=== PATIENT | female | born 1945 | race Asian ===

== ENCOUNTER → 2017-10-12 | Outpatient (CLI) | payer OTHER ==
[~2017-10-12] MED LIST: ASCO-360 PO; ASPI-555 PO; CITA20TA17 PO; DILT180C63 PO; FAMO-136 PO; GLUC-172 PO; HYDR25TA PO; MV-M1TAB39 PO; ROSU10TA27 PO; ZOLP10TA2 PO
== END | disposition home or self-care (01) ==
LOC: RAH 16:04
PROVIDERS: ATTEND Internal Medicine
DX: R05 Cough (principal)
CPT/HCPCS: 71046

== ENCOUNTER → 2018-05-09 | Outpatient (CLI) | payer OTHER | END | disposition home or self-care (01) | LOC: RAH 11:59 | PROVIDERS: ATTEND Internal Medicine | DX: S00.93XS Contusion of unspecified part of head, sequela (principal); G31.9 Degenerative disease of nervous system, unspecified; M79.89 Other specified soft tissue disorders; Z72.89 Other problems related to lifestyle; X58.XXXS Exposure to other specified factors, sequela | CPT/HCPCS: 70450 ==

== ENCOUNTER → 2018-09-23 | Outpatient (CLI) | payer OTHER ==
[~2018-09-23] MED LIST changes: -ROSU10TA27 PO; +ROSU10TA28 PO
== END | disposition home or self-care (01) ==
LOC: RAH 14:26
PROVIDERS: ATTEND Internal Medicine
DX: Z12.31 Encounter for screening mammogram for malignant neoplasm of breast (principal)
CPT/HCPCS: 77067

== ENCOUNTER → 2018-10-10 | Outpatient (CLI) | payer OTHER ==
[~2018-10-10] MED LIST changes: +ROSU10TA27 PO; -ROSU10TA28 PO
== END | disposition home or self-care (01) ==
LOC: RAH 10:09
PROVIDERS: ATTEND Internal Medicine
DX: R01.1 Cardiac murmur, unspecified (principal)
CPT/HCPCS: 93306

== ENCOUNTER → 2019-11-08 | Outpatient (CLI) | payer OTHER ==
[~2019-11-08] MED LIST changes: -ROSU10TA27 PO; +ROSU10TA28 PO
== END | disposition home or self-care (01) ==
LOC: RAH 09:21
PROVIDERS: ATTEND Internal Medicine
DX: M25.512 Pain in left shoulder (principal)
CPT/HCPCS: 73030; 73060

== ENCOUNTER → 2019-11-16 | Outpatient (CLI) | payer OTHER | END | disposition home or self-care (01) | LOC: RAH 15:15 | PROVIDERS: ATTEND Internal Medicine Cardiovascular Disease | DX: Z13.6 Encounter for screening for cardiovascular disorders (principal) ==

== ENCOUNTER → 2019-12-19 | Outpatient (CLI) | payer OTHER ==
[~2019-12-19] MED LIST changes: -ASPI-555 PO; +ASPI-556 PO; +LORA10TA7 PO; +MULT-1192 PO; +PANT40TA54 PO; +albuterol inhaler IH
== END | disposition home or self-care (01) ==
LOC: RAH 13:58
PROVIDERS: ATTEND Internal Medicine
DX: M47.22 Other spondylosis with radiculopathy, cervical region (principal); M25.512 Pain in left shoulder
CPT/HCPCS: 72040; 73221

== ENCOUNTER → 2020-01-23 | Outpatient (CLI) | payer OTHER ==
[~2020-01-23] MED LIST changes: -LORA10TA7 PO; -MULT-1192 PO; -PANT40TA54 PO; -albuterol inhaler IH
== END | disposition home or self-care (01) ==
LOC: RAH 09:20
PROVIDERS: ATTEND Internal Medicine
DX: Z01.818 Encounter for other preprocedural examination (principal); M75.112 Incomplete rotator cuff tear or rupture of left shoulder, not specified as traumatic; M47.814 Spondylosis without myelopathy or radiculopathy, thoracic region
CPT/HCPCS: 71046

== ENCOUNTER 2020-02-15 05:45 | Day surgery (SDC) | payer OTHER ==
[2020-02-07 11:39] LABS: BASOPHILS % (AUTO) 0.8 % (0.0-5.0); EOSINOPHILS % (AUTO) 3.6 % (0.0-8.0); HEMATOCRIT 40.1 % (36-48); MEAN CORPUSCULAR HEMOGLOBIN 31.1 pg (27.0-33.0); MEAN CORPUSCULAR HGB CONC 32.9 g/dL (32.0-36.0); MEAN CORPUSCULAR VOLUME 94.6 fL (79-99); MONOCYTES % (AUTO) 8.5 % (3.0-13.0); NEUTROPHILS % (AUTO) 46.8 % (40.0-77.0); PLATELET COUNT (AUTO) 210 K/uL (130-400); RED BLOOD CELL COUNT(AUTO) 4.24 MIL/uL (4.00-5.50); RED CELL DISTRIBUTION WIDTH 12.4 % (11.0-15.5); WHITE BLOOD COUNT (AUTO) 5.9 K/uL (4.8-10.8)
[2020-02-07 11:58] LABS: CREATININE 0.8 mg/dL (0.5-1.5)
[2020-02-15] VITALS (17 sets, daily range): BP systolic 100–146; BP diastolic 44–76
[~2020-02-15] VITALS: Ht 154.9 cm; Wt 63.0 kg
[2020-02-15] MEDS ORDERED: LACTATED RINGERS 1000ML 1,000 ML IV ONE (06:04)
[2020-02-15] MEDS: CEFAZOLIN SODIUM 1 GM VIAL ONE ×2 (06:04→08:00)
[2020-02-15] MEDS ORDERED: LIDOCAINE PF 2% 5ML ABBOJECT ONE (07:10)
[2020-02-15] MEDS ORDERED: ONDANSETRON HCL 4 MG/2 ML VIAL ONE (07:11)
[2020-02-15] MEDS ORDERED: ROCURONIUM 10MG/1ML SYR 10 MG/ML ML ONE (07:12)
[2020-02-15] MEDS ORDERED: PROPOFOL 10 MG/ML 20ML VIAL IV ONE (07:12)
[2020-02-15] MEDS ORDERED: FENTANYL CITRATE PF 50 MCG/1 ML 2ML VIAL ONE (07:13)
[2020-02-15] MEDS ORDERED: MIDAZOLAM HCL 1 MG/ML 2ML VIAL ONE (07:14)
[2020-02-15] MEDS ORDERED: ROPIVACAINE 0.5% 5MG/ML 30ML IJ ONE (07:16)
[2020-02-15] MEDS ORDERED: DEXAMETHASONE SOD PHOSPHATE 10MG/ML 1ML VIAL ONE (07:17)
[2020-02-15] MEDS ORDERED: LORA10TA7 PO (08:02)
[2020-02-15] MEDS ORDERED: MULT-1192 PO (08:02)
[2020-02-15] MEDS ORDERED: albuterol inhaler IH (08:05)
[2020-02-15] MEDS ORDERED: PANT40TA54 PO (08:05)
[2020-02-15] MEDS ORDERED: GLYCOPYRROLATE 1 MG/5 ML SYRINGE ONE (08:43)
[2020-02-15] MEDS ORDERED: NEOSTIGMINE 5MG/5ML SYR IV ONE (08:43)
[2020-02-15] MEDS ORDERED: EPHEDRINE SULFATE 50 MG/ML AMPULE ONE (08:53)
[2020-02-15] MEDS ORDERED: KETOROLAC TROMETHAMINE 30MG/ML ONE (09:28)
--- NOTE | 2020-02-15 10:45 | NUR ---
PATIENT ARRIVED TO DAY PATIENT VIA STRETCHER BY MAHAMED DE PAZ. PATIENT AAOX3, RESPIRATIONS UNLABORED, VITAL SIGNS STABLE. DENIES ANY PAIN AT THIS TIME, PATIENT RECEIVED NERVE BLOCK IN OR AND STATES THAT HER LEFT ARE "FEELS NUMB". SLING TO LEFT ARM IN PLACE AND DRESSING LEFT SHOULDER IS DRY/INTACT, NO DRAINAGE OR BLEEDING NOTED.
--- NOTE | 2020-02-15 11:15 | NUR ---
DISCHARGE INSTRUCTIONS PROVIDED TO PATIENT'S SPOUSE (LESLIE THAKKAR) VIA TELEPHONE. FOLLOW UP APPOINTMENT PROVIDE AND INCISION CARE INSTRUCTIONS PROVIDED WELL. PATIENT'S SPOUSE VERBALIZED UNDERSTANDING, ALL QUESTIONS/CONCERNS ADDRESSED.
== END 2020-02-15 11:30 | disposition home or self-care (01) ==
LOC: DAH 05:45
PROVIDERS: ATTEND Orthopaedic Surgery
DX: S46.212A Strain of muscle, fascia and tendon of other parts of biceps, left arm, initial encounter (principal); M75.42 Impingement syndrome of left shoulder; M25.812 Other specified joint disorders, left shoulder; M19.012 Primary osteoarthritis, left shoulder; M47.22 Other spondylosis with radiculopathy, cervical region; Z20.828 Contact with and (suspected) exposure to other viral communicable diseases; W19.XXXA Unspecified fall, initial encounter; Y93.89 Activity, other specified; Y92.89 Other specified places as the place of occurrence of the external cause; Y99.8 Other external cause status
CPT/HCPCS: 29826; 29827; 29828; 36415; 64415; 76942; 80048; 85025; 93005; A4215; A4221; A4222; A4223; A4452; A4565; A4649 ×5; A4663; A4930; A6260; C1713 ×3; J0690; J1100; J1885; J2001; J2250; J2405; J2704; J2710; J2795; J3010; J3490 ×2; J7120 ×2; U0003

== ENCOUNTER → 2020-03-22 | Outpatient (CLI) | payer OTHER ==
[~2020-03-22] MED LIST changes: -ASCO-360 PO; -FAMO-136 PO; -GLUC-172 PO; +LORA10TA7 PO; +MULT-1192 PO; -MV-M1TAB39 PO; +PANT40TA54 PO; +albuterol inhaler IH
== END | disposition home or self-care (01) ==
LOC: RAH 10:41
PROVIDERS: ATTEND Internal Medicine
DX: Z12.31 Encounter for screening mammogram for malignant neoplasm of breast (principal)
CPT/HCPCS: 77067

== ENCOUNTER → 2022-11-13 | Outpatient (CLI) | payer MEDICARE | END | disposition home or self-care (01) | LOC: RAH 11:51 | PROVIDERS: ATTEND Internal Medicine | DX: M17.12 Unilateral primary osteoarthritis, left knee (principal); M25.562 Pain in left knee | CPT/HCPCS: 73560 ==

== ENCOUNTER → 2023-05-11 | Outpatient (CLI) | payer MEDICARE | END | disposition home or self-care (01) | LOC: RAH 15:33 | PROVIDERS: ATTEND Internal Medicine | DX: Z12.31 Encounter for screening mammogram for malignant neoplasm of breast (principal) | CPT/HCPCS: 77067 ==

== ENCOUNTER → 2025-01-03 | Outpatient (CLI) | payer MEDICARE ==
[~2025-01-03] MED LIST changes: -ROSU10TA28 PO; +ROSU10TA72 PO; +ZOLP-685 PO; -ZOLP10TA2 PO
== END | disposition home or self-care (01) ==
LOC: RAH 08:47
PROVIDERS: ATTEND Internal Medicine
DX: Z12.31 Encounter for screening mammogram for malignant neoplasm of breast (principal)
CPT/HCPCS: 77067

== ENCOUNTER → 2025-04-18 | Outpatient (CLI) | payer MEDICARE ==
[~2025-04-18] MED LIST changes: -ROSU10TA72 PO; +ROSU10TA98 PO
--- NOTE | 2025-04-18 14:31 | HMCIMG ---
EXAM: US Abdomen, Right Upper Quadrant CLINICAL HISTORY: Abnormal levels of other serum enzymes. TECHNIQUE: Right upper quadrant sonography performed with image documentation. COMPARISON: None provided. FINDINGS: LIVER: Measures approximately 13.3 cm in length. Normal echotexture and echogenicity. No focal hepatic mass or intrahepatic biliary dilatation identified. GALLBLADDER: Surgically absent. No abnormal fluid collection in the gallbladder fossa. COMMON BILE DUCT: Measures approximately 6 mm in diameter, within normal post-cholecystectomy limits. No intrahepatic biliary dilatation. PANCREAS: Visualized portions of the pancreas appear within normal limits. No focal lesion or peripancreatic fluid collection identified. RIGHT KIDNEY: Measures approximately 10.0 ??? 4.3 ??? 4.7 cm. Normal cortical echogenicity and parenchymal thickness. No hydronephrosis, calculus, or focal lesion. IMPRESSION: * Post-cholecystectomy status with normal common bile duct caliber. * Normal sonographic appearance of the liver, pancreas, and right kidney. /Harper
== END | disposition home or self-care (01) ==
LOC: RAH 09:24
PROVIDERS: ATTEND Clinical Nurse Specialist Family Health
DX: R74.8 Abnormal levels of other serum enzymes (principal); Z90.49 Acquired absence of other specified parts of digestive tract
CPT/HCPCS: 76705